=== PATIENT | female | born 1965 | race Caucasian/White ===

== ENCOUNTER 2018-06-10 08:34 | Day surgery (SDC) | payer MEDICARE ==
[2018-06-09 12:41] VITALS: BMI 37.4
[2018-06-10 09:05] LABS: BHCG - Serum Negative (NEGATIVE); Pregs Control Background? CLEAR/WHITE (CLR/WHITE); Pregs Control Bar Appear? YES (CONTROL BAR)
[2018-06-10] MEDS ORDERED: Midazolam HCl 2 mg/2 ml Vial ONE (10:04)
[2018-06-10] MEDS ORDERED: Lidocaine 1% w/Epinephrine 1:100K 30 ML VIAL ONE (10:21)
[2018-06-10] MEDS ORDERED: Famotidine/PF 20 mg/2ml Vial ONE (10:24)
[2018-06-10] MEDS ORDERED: Fentanyl 100 MCG/2 ML VIAL ONE ×2 (10:24→13:13)
[2018-06-10] MEDS ORDERED: Ondansetron HCl/PF 4 MG/2 ML Vial ONE (13:31)
[2018-06-10] MEDS ORDERED: ePHEDrine/0.9% NaCl/PF SYRINGE 50 mg/10 ml ONE (13:31)
[2018-06-10] MEDS ORDERED: PROVENTIL INHALER 6.7 G (200 INHALATIONS) ONE (13:31)
[2018-06-10] MEDS ORDERED: PROPOFOL 200 MG/20 ML VIAL ONE (13:31)
[2018-06-10] MEDS ORDERED: Ketorolac Tromethamine 30 MG/ML VIAL ONE (13:31)
[2018-06-10] MEDS ORDERED: Succinylcholine Chloride 20 MG/ML 10 ml SYRINGE FS ONE (13:31)
[2018-06-10] MEDS ORDERED: Lidocaine 1% PF 5 ML VIAL ONE (13:31)
[2018-06-10] MEDS ORDERED: PHENYLEPHRINE-NS 100 MCG/ML 10 ML SYRINGE ONE (13:31)
[2018-06-10] MEDS ORDERED: Dexamethasone 20 MG/5 ML VIAL ONE (13:31)
[2018-06-10] MEDS ORDERED: metFORMIN 500 MG TAB PO SCH (14:30)
--- NOTE | 2018-06-10 15:31 | EKG ---
Test Reason : PREOP Blood Pressure : / mmHG Vent. Rate : 067 BPM Atrial Rate : 067 BPM P-R Int : 158 ms QRS Dur : 086 ms QT Int : 422 ms P-R-T Axes : 041 035 005 degrees QTc Int : 445 ms Normal sinus rhythm Normal ECG No previous ECGs available Confirmed by BRENNAN PELAEZ ([id number]) on 06/10/2018 3:30:56 PM Referred By: FELICITA Confirmed By:BRENNAN PELAEZ
[2018-06-10] MEDS ORDERED: Hydrocodone-Acetamin 15 ML UDCUP ONE (15:38)
--- NOTE | 2018-06-11 10:14 | OP ---
DATE OF PROCEDURE: 06/10/2018 PREOPERATIVE DIAGNOSIS: Right thyroid mass. POSTOPERATIVE DIAGNOSES: Right thyroid mass. PROCEDURE: Right hemithyroidectomy with intraoperative laryngeal nerve monitor. SURGEON: Martell Novak M.D. DUB ROOM ENGINEER: Efren Degroot ESTIMATED BLOOD LOSS: 20 mL. COMPLICATIONS: None. ANESTHESIA: GETA. PROCEDURE IN DETAIL: The patient was taken to the operating room and placed supine on the table. Ge neral endotracheal anesthesia was obtained by the Anesthesia staff. Using the indirect GlideScope, t he laryngeal monitor was confirmed to be between the vocal cords. The tube was secured to the midli ne upper lip as a shoulder roll was placed. Following this, the patient was prepped and draped in [facility] andard surgical fashion. 8 mL of 1% lidocaine 1:10,000 epinephrine was injected into a madison shape d area over an anticipated neck incision. Following this, incision made with a 15 blade, carried thr ough skin, subcutaneous tissue, and the platysmal layer. Subplatysmal flaps were then elevated super iorly and inferiorly, superiorly to the level of the thyroid notch and inferiorly to the clavicles. Following the strap muscles were identified and were in the midline and retracted laterally . The right thyroid lobe was then identified and dissection was carried immediately alongside the ca psule of the thyroid laterally. The middle thyroid vein was identified and suture ligated. The supe rior thyroid vascular pedicle was identified and was suture ligated immediately adjacent to the thyro id lobe. Following this, the recurrent laryngeal nerve was identified and was noted to be coursing a pproximately 15 degrees from the tracheoesophageal groove. As it was identified and was protected in ferior thyroid artery was suture ligated and the gland was released from this area. Following this, Draper's ligaments attaching the medial aspect of the thyroid to the trachea were then ligated and the right lobe was freed, it was suture ligated as right lobe and the isthmus of the thyroid were remove d and sent for frozen section analysis. Frozen section confirmed a follicular lesion and would defer for further studies. The wound was then irrigated, a small drain was placed. The skin of the strap muscles were closed using Monocryl stitches as well as the platysmal layer and subcuticular layer. The skin was closed using Dermabond. The patient tolerated the procedure well.
== END 2018-06-10 17:00 | disposition home or self-care (01) ==
LOC: SDC 08:34
PROVIDERS: ATTEND Otolaryngology Plastic Surgery within the Head & Neck
PROC: 0GTH0ZZ Resection of Right Thyroid Gland Lobe, Open Approach (ICD-10-PCS; principal; 2018-06-10)
DX: E04.1 Nontoxic single thyroid nodule (principal); F41.9 Anxiety disorder, unspecified; M19.90 Unspecified osteoarthritis, unspecified site; E78.00 Pure hypercholesterolemia, unspecified; F32.9 Major depressive disorder, single episode, unspecified; G89.29 Other chronic pain; E11.9 Type 2 diabetes mellitus without complications; L65.9 Nonscarring hair loss, unspecified; Z88.5 Allergy status to narcotic agent; Z91.041 Radiographic dye allergy status; Z79.84 Long term (current) use of oral hypoglycemic drugs; Z79.899 Other long term (current) drug therapy
CPT/HCPCS: 36415; 84703; 85014; 88305; 88307; 88331; 93005; 93010; 96374; J0131; J1100; J1885; J2001; J2250; J2405; J2704; J3010; S0028

== ENCOUNTER 2021-07-04 10:29 | Inpatient (IN) | payer MEDICARE ==
[2021-07-04 12:05] LABS: Hemoglobin 8.1 g/dL (12.0-16.0); Mean Corpuscular HGB CONC 30.9 g/dL (32.0-36.0); Mean Corpuscular Hemoglobin 27.2 pg (27.0-31.0); Mean Corpuscular Volume 88.2 fL (78.0-98.0); Mean Platelet Volume 6.6 fL (7.4-10.4); Platelet Count 678 thou/uL (130-400); RBC Distribution Width 16.9 % (11.5-14.5); Red Blood Cell (RBC) Count 2.99 mill/uL (4.20-5.40); White Blood Cell (WBC) Count 15.1 thou/uL (4.8-10.8)
[2021-07-04 12:09] LABS: ALT (SGPT) 17 U/L (8-55); AST (SGOT) 12 U/L (5-34); Albumin 3.6 g/dL (3.5-5.0); Alkaline Phosphatase 81 U/L (40-110); Anion Gap 13 mmol/L (10-20); BUN (Urea Nitrogen) 22 mg/dL (9.8-20.1); Bilirubin, Total 0.3 mg/dL (0.2-1.2); Calc. Creatinine Clearance 0 mL/min (70-130); Calcium 8.5 mg/dL (7.8-10.44); Carbon Dioxide 34 mmol/L (22-29); Chloride 97 mmol/L (98-107); Globulin 2.6 g/dL (2.4-3.5); Glucose 113 mg/dL (70-105); Protein, Total 6.2 g/dL (6.0-8.3); Sodium 140 mmol/L (136-145)
[2021-07-04 12:11] LABS: INR-International Normal Ratio 1.1; Prothrombin Time 14.6 sec (12.0-14.7)
[2021-07-04 12:26] LABS: Anisocytosis SLIGHT = 6-15 cells (100X) (0-5/hpf); Band 3 % (5-11); Eosinophils 1 % (0-10); Hypochromia SLIGHT = 6-15 cells (100X) (0-5/hpf); Lymphocytes 37 % (21-51); MDiff Complete? YES; Monocytes 7 % (0-10); Neutrophil 49 % (42-75); Nucleated RBC 3 % (0); Platelet Morphology Comment Appears Increased; Polychromasia MODERATE = 3-4 cells (100X) (0-2/hpf); Reactive Lymphocytes 3 % (0-10); Target Cells SLIGHT = 2-5 cells (100X) (0-1/hpf)
[2021-07-04] MEDS ORDERED: Pantoprazole 40 MG VIAL ONE (12:32)
[2021-07-04] MEDS ORDERED: Dextrose 50% Abboject 50 ML SYRINGE ONE (13:00)
[2021-07-04 13:59] LABS: Reticulocyte Count 6.7 % (0.5-1.5)
[2021-07-04] MEDS ORDERED: Dextrose 50% Abboject 50 ML SYRINGE SLOW IVP PRN (14:01)
[2021-07-04] MEDS ORDERED: Dextrose 5% in Water 1,000 ML IV PRN (14:01)
[2021-07-04] MEDS ORDERED: Insulin Regular 300 UNITS/3 ML VIAL SC PRN (14:01)
[2021-07-04] MEDS ORDERED: Calcium Carbonate 500 MG ChewTAB PO PRN (14:03)
[2021-07-04] MEDS ORDERED: Ondansetron ODT 4 MG TAB PO PRN (14:03)
[2021-07-04] MEDS ORDERED: Ondansetron PF 4 MG/2 ML Vial IVP PRN (14:03)
[2021-07-04 14:05] LABS: Iron 27 ug/dL (50-170); Iron Binding Capacity, Total 434 mcg/dL (265-497)
[2021-07-04] MEDS ORDERED: Sodium Chloride 0.9% 1,000 ML IV SCH (14:15)
[2021-07-04 15:07] VITALS: BMI 38.5
[2021-07-04] MEDS: Gabapentin 300 MG CAP PO SCH ×2 (15:52→20:31)
[2021-07-04 17:27] LABS: Hemoglobin 7.7 g/dL (12.0-16.0); Platelet Count 610 thou/uL (130-400)
[2021-07-04] MEDS: Acetaminophen 325 MG TAB PO PRN ×2 (18:22→22:56)
[2021-07-04] MEDS: Dextrose 5 %-0.45 % NaCl 1,000 ML IV SCH (18:22)
[2021-07-04] MEDS ORDERED: Iron, Sodium Ferric Gluconate 250 MG in Sodium Chloride 0.9% 250 ML 250 ML IVPB SCH (20:00)
[2021-07-04] MEDS ORDERED: GoLYTELY 4,000 ml Bottle PO SCH (20:00)
[2021-07-04] MEDS: Pantoprazole 40 MG VIAL IVP SCH (20:31)
[2021-07-04] MEDS: Pramipexole Di-HCl 0.25 MG TAB PO SCH (20:36)
[2021-07-04] MEDS: traMADol HCl 50 MG TAB PO PRN (20:37)
[2021-07-04 22:17] LABS: SARS-CoV-2 PCR by NAA Not Detected (NotDetected)
[2021-07-04 23:20] LABS: Hemoglobin 7.8 g/dL (12.0-16.0); Platelet Count 607 thou/uL (130-400)
[2021-07-05] MEDS: traMADol HCl 50 MG TAB PO PRN (02:55)
[2021-07-05] MEDS: Levothyroxine Sodium 100 MCG TAB PO SCH (06:12)
[2021-07-05] MEDS: Dextrose 5 %-0.45 % NaCl 1,000 ML IV SCH ×2 (06:28→17:43)
[2021-07-05 07:01] LABS: Anion Gap 11 mmol/L (10-20); BUN (Urea Nitrogen) 14 mg/dL (9.8-20.1); Calc. Creatinine Clearance 128 mL/min (70-130); Calcium 7.7 mg/dL (7.8-10.44); Carbon Dioxide 35 mmol/L (22-29); Chloride 99 mmol/L (98-107); Glucose 99 mg/dL (70-105); Potassium 4.2 mmol/L (3.5-5.1); Sodium 141 mmol/L (136-145)
[2021-07-05 07:03] LABS: #Eosinphils 0.2 thou/uL (0.0-0.7); #Lymphocytes 3.7 thou/uL (1.20-3.40); #Monocytes 0.5 thou/uL (0.11-0.59); #Neutrophils 4.6 thou/uL (1.40-6.50); %Basophils 0.2 % (0.0-1.0); %Eosinophils 2.2 % (0.0-10.0); %Monocytes 5.2 % (0.0-10.0); %Neutrophils 51.5 % (42.0-75.0); Hemoglobin 7.4 g/dL (12.0-16.0); Mean Corpuscular HGB CONC 31.2 g/dL (32.0-36.0); Mean Corpuscular Hemoglobin 27.8 pg (27.0-31.0); Mean Corpuscular Volume 89.1 fL (78.0-98.0); Mean Platelet Volume 6.6 fL (7.4-10.4); Platelet Count 604 thou/uL (130-400); Red Blood Cell (RBC) Count 2.65 mill/uL (4.20-5.40)
[2021-07-05] MEDS: predniSONE 20 MG TAB PO SCH (08:12)
[2021-07-05] MEDS: Gabapentin 300 MG CAP PO SCH ×3 (08:13→20:15)
[2021-07-05] MEDS: Pantoprazole 40 MG VIAL IVP SCH (08:14)
[2021-07-05] MEDS ORDERED: Fentanyl 100 MCG/2 ML VIAL ONE (11:23)
[2021-07-05] MEDS ORDERED: PROPOFOL 200 MG/20 ML VIAL ONE (14:41)
[2021-07-05] MEDS ORDERED: Lidocaine 1% PF 5 ML VIAL ONE (14:41)
[2021-07-05] MEDS ORDERED: Sodium Chloride 0.9% 10 ML ONE (15:18)
[2021-07-05] MEDS ORDERED: HYDROmorphone 2 MG/ML VIAL SLOW IVP PRN (16:00)
[2021-07-05] MEDS ORDERED: Ondansetron HCl/PF 4 MG/2 ML Vial IVP PRN (16:00)
[2021-07-05] MEDS ORDERED: Promethazine HCl 25 MG/ML VIAL IVPB PRN (16:00)
[2021-07-05] MEDS ORDERED: Promethazine HCl 25 MG/ML VIAL IM PRN (16:00)
[2021-07-05] MEDS: Insulin Regular 300 UNITS/3 ML VIAL SC PRN (20:16)
[2021-07-05] MEDS: Pramipexole Di-HCl 0.25 MG TAB PO SCH (20:16)
[2021-07-06] MEDS: Insulin Regular 300 UNITS/3 ML VIAL SC PRN (01:23)
[2021-07-06] MEDS: Levothyroxine Sodium 100 MCG TAB PO SCH (05:21)
[2021-07-06 07:17] LABS: Hemoglobin 7.5 g/dL (12.0-16.0); Mean Corpuscular Hemoglobin 28.4 pg (27.0-31.0); Mean Corpuscular Volume 88.7 fL (78.0-98.0); Mean Platelet Volume 6.5 fL (7.4-10.4); Platelet Count 614 thou/uL (130-400); RBC Distribution Width 17.1 % (11.5-14.5); Red Blood Cell (RBC) Count 2.63 mill/uL (4.20-5.40); White Blood Cell (WBC) Count 11.7 thou/uL (4.8-10.8)
[2021-07-06 07:48] LABS: Anisocytosis SLIGHT = 6-15 cells (100X) (0-5/hpf); Band 6 % (5-11); Eosinophils 1 % (0-10); Lymphocytes 32 % (21-51); MDiff Complete? YES; Monocytes 4 % (0-10); Neutrophil 56 % (42-75); Nucleated RBC 4 % (0); Platelet Morphology Comment Appears Increased; Polychromasia SLIGHT = 2-3 cells (100X) (0-2/hpf)
[2021-07-06] MEDS: Gabapentin 300 MG CAP PO SCH ×2 (08:22→15:13)
[2021-07-06] MEDS: predniSONE 20 MG TAB PO SCH (08:22)
[2021-07-06] MEDS ORDERED: diphenhydrAMINE 50 MG CAP PO SCH (09:36)
[2021-07-06] MEDS ORDERED: Iopamidol-370 76% 500 ML 1 ML ONE (09:36)
[2021-07-06 11:08] VITALS: BP 130/85; TEMP 98.4
[2021-07-06] MEDS ORDERED: predniSONE 50 MG TAB PO SCH (12:00)
[2021-07-06] MEDS ORDERED: diphenhydrAMINE 25 MG CAP PO SCH ×2 (12:00)
== END 2021-07-06 17:07 | disposition home or self-care (01) | DRG 378 ==
LOC: ERS 10:29 → T4-B 12:56
PROVIDERS: ADMIT Internal Medicine; ATTEND Internal Medicine
PROC: 0DB98ZX Excision of Duodenum, Via Natural or Artificial Opening Endoscopic, Diagnostic (ICD-10-PCS; principal; 2021-07-05)
PROC: 0DBH8ZX Excision of Cecum, Via Natural or Artificial Opening Endoscopic, Diagnostic (ICD-10-PCS; 2021-07-05)
DX: K92.2 Gastrointestinal hemorrhage, unspecified (principal); I82.401 Acute embolism and thrombosis of unspecified deep veins of right lower extremity; Z20.822 Contact with and (suspected) exposure to COVID-19; K21.9 Gastro-esophageal reflux disease without esophagitis; G25.81 Restless legs syndrome; E03.9 Hypothyroidism, unspecified; M54.10 Radiculopathy, site unspecified; E66.9 Obesity, unspecified; K44.9 Diaphragmatic hernia without obstruction or gangrene; K57.30 Diverticulosis of large intestine without perforation or abscess without bleeding; K63.5 Polyp of colon; D50.9 Iron deficiency anemia, unspecified; J44.9 Chronic obstructive pulmonary disease, unspecified; F43.10 Post-traumatic stress disorder, unspecified; F32.9 Major depressive disorder, single episode, unspecified; F17.210 Nicotine dependence, cigarettes, uncomplicated; E11.9 Type 2 diabetes mellitus without complications; Z88.5 Allergy status to narcotic agent; Z88.8 Allergy status to other drugs, medicaments and biological substances; Z79.01 Long term (current) use of anticoagulants; Z79.84 Long term (current) use of oral hypoglycemic drugs; Z79.52 Long term (current) use of systemic steroids; Z79.899 Other long term (current) drug therapy; Z68.38 Body mass index [BMI] 38.0-38.9, adult; Z85.43 Personal history of malignant neoplasm of ovary; Z85.850 Personal history of malignant neoplasm of thyroid; Z90.710 Acquired absence of both cervix and uterus
CPT/HCPCS: 36415; 36416; 74178; 80048; 80053; 82728; 83540; 83550; 85025; 85046; 85610; 85730; 86850; 86900; 86901; 88305; 93005; 94760; 96374; C9113; J1815; J2704; J2916; J3010; J7050; J7512; Q0163; Q9967; U0003; U0005